=== PATIENT | female | born 1985 | race Caucasian/White ===

== ENCOUNTER 2019-04-20 10:46 | Emergency (ER) | payer MEDICAID ==
[~2019-04-20] VITALS: Ht 167.6 cm; Wt 79.0 kg
[2019-04-20] MEDS ORDERED: SODIUM CHLORIDE 0.9% 1,000 ML IV ONE (11:08)
[2019-04-20] MEDS ORDERED: DIPHENHYDRAMINE 50MG/ML VIAL IV ONE (11:15)
[2019-04-20] MEDS ORDERED: METOCLOPRAMIDE HCL 10MG/2ML VIAL IV ONE (11:15)
[2019-04-20] MEDS ORDERED: KETOROLAC 30MG/ML VIAL IV ONE (11:15)
[2019-04-20 11:16] LABS: CLARITY URINE CLEAR (CLEAR); COLOR URINE YELLOW (YELLOW); KETONES URINE NEGATIVE (NEGATIVE); LEUKOCYTE ESTERASE URINE NEGATIVE (NEGATIVE); NITRITE URINE NEGATIVE (NEGATIVE); OCCULT BLOOD URINE NEGATIVE (NEGATIVE); PH URINE 7.5 (4.5-8.0); PROTEIN URINE NEGATIVE (NEGATIVE); SPECIFIC GRAVITY URINE 1.019 (1.005-1.030); UROBILINOGEN URINE 0.2 E.U./dL (0.2-1.0)
[2019-04-20 11:38] LABS: BASOPHILS % 0.3 % (0.0-2.0); EOSINOPHILS % 1.3 % (0.0-5.0); HEMATOCRIT. 41.7 % (36.0-48.0); HEMOGLOBIN. 14.4 g/dL (12.0-16.0); LYMPHOCYTES % 24.3 % (20.0-50.0); MEAN CORPUSCULAR HEMOGLOBIN 33.6 pg (28.0-32.0); MEAN CORPUSCULAR VOLUME 97.3 fL (81.0-99.0); MEAN PLATELET VOLUME 9.4 fl (7.4-10.4); MONOCYTES % 8.2 % (2.0-8.0); NEUTROPHILS % 65.9 % (40.0-76.0); PLATELET 317 x1000/uL (130-400); RED BLOOD CELL COUNT 4.29 mill/uL (4.2-5.4); RED CELL DISTRIBUTION WIDTH 12.7 % (11.6-14.6)
[2019-04-20 11:44] LABS: PROTHROMBIN TIME 10.7 sec (9.6-11.0)
[2019-04-20 11:47] LABS: CHLORIDE 110 mEq/L (98-107)
[2019-04-20 11:49] LABS: HCG SCREEN NEGATIVE
[2019-04-20 14:02] VITALS: BP 130/70
== END 2019-04-20 14:20 | disposition home or self-care (01) ==
LOC: ER 10:46
DX: R51 Headache (principal)
CPT/HCPCS: 36415; 70450; 80053; 81003; 81025; 84703; 85025; 85610; 96361; 96374; 96375; 99284; J1200; J1885; J2765; J7030

== ENCOUNTER 2020-09-27 07:58 | Emergency (ER) | payer MEDICAID ==
[~2020-09-27] VITALS: Ht 167.6 cm; Wt 82.0 kg
[2020-09-27] MEDS ORDERED: KETOROLAC 30MG/ML VIAL IM ONE (08:45)
[2020-09-27] MEDS ORDERED: CEPH500C2 MT (08:51)
[2020-09-27] MEDS ORDERED: IBUP-2029 MT (08:51)
[2020-09-27] MEDS ORDERED: SULF1TAB48 MT (08:51)
[2020-09-27 09:08] VITALS: BP 134/87
== END 2020-09-27 09:09 | disposition home or self-care (01) ==
LOC: ER 08:06
DX: L03.012 Cellulitis of left finger (principal); Z79.899 Other long term (current) drug therapy
CPT/HCPCS: 81025; 96372; 99283; J1885